=== PATIENT | male | born 1930 | race Caucasian/White ===

== ENCOUNTER 2017-07-21 14:52 | Outpatient (CLI) | payer MEDICARE, BC ==
[~2017-07-21 14:52] MED LIST: Gadobenate Dimeglumine 529 MG/1 ML (20ML VIAL) ONE
--- NOTE | 2017-07-21 20:09 | MRI ---
NONCONTRAST ENHANCED MRI IMAGES LUMBAR SPINE 07/21/17 Gadolinium was not given due to the patient's renal status. HISTORY: M54.16 - lumbar radiculopathy. Multiplanar and multisequence noncontrast enhanced MR images of the lumbar spine obtained. T12-L1: Mild facet hypertrophy is seen. L1-2: Bilateral facet and ligamentum flavum hypertrophy is seen. No significant degree of central or neural foraminal narrowing is seen. L2-3: Disc desiccation is seen. There is a broad based central disc protrusion with bilateral facet h ypertrophy and ligamentum flavum hypertrophy. The patient has had previous L3 laminectomy. At L2-3, t here is moderate degree of central and lateral recess stenosis due to facet hypertrophy. L3-4: Patient has had previous L3 and L4 and L5 laminectomies. There is severe facet hypertrophic marleni nges and some ligamentum flavum hypertrophy which extends into the L3-4 central and lateral recess re gion. This results in moderate to severe bilateral neural foraminal narrowing and moderate to severe central and lateral recess stenosis. L4-5: Severe facet and ligamentum flavum hypertrophy is seen. This results in mild to moderate centra l and lateral recess stenosis. The neural foramen are patent. L5-S1: Mild to moderate bilateral facet hypertrophy is seen. The central canal and neural foramen are patent. Multiple renal cysts or cystic lesions are present. Further workup using sonography may be of use to evaluate these renal lesions. 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 POS: LISA
== END 2017-07-21 14:53 | disposition home or self-care (01) ==
LOC: TBSIIMAG 14:52
PROVIDERS: ATTEND Surgery
DX: M54.16 Radiculopathy, lumbar region (principal); M48.061 Spinal stenosis, lumbar region without neurogenic claudication; M24.28 Disorder of ligament, vertebrae; Z98.890 Other specified postprocedural states
CPT/HCPCS: 72158; A9579